=== PATIENT | male | born 1960 | race Caucasian/White ===

== ENCOUNTER 2018-01-06 09:20 | Day surgery (SDC) | payer OTHER ==
[~2018-01-06] VITALS: Ht 177.8 cm; Wt 97.7 kg
[~2018-01-06 09:20] MED LIST: Amoxicillin500 M1 PO; CLAR500 PO; LEVO750 PO; OMEP20ER PO; ONDA4ODT MM; PANT40; Protonix40 MG PO
== END 2018-01-06 10:40 | disposition home or self-care (01) ==
LOC: ORSCSDS 09:20
PROVIDERS: Internal Medicine Gastroenterology
PROC: 0DB68ZX Excision of Stomach, Via Natural or Artificial Opening Endoscopic, Diagnostic (ICD-10-PCS; principal; 2018-01-06 10:45)
PROC: 0DB58ZX Excision of Esophagus, Via Natural or Artificial Opening Endoscopic, Diagnostic (ICD-10-PCS; principal; 2018-01-06 10:45)
DX: R11.0 Nausea (principal); K25.9 Gastric ulcer, unspecified as acute or chronic, without hemorrhage or perforation; K29.70 Gastritis, unspecified, without bleeding; K20.9 Esophagitis, unspecified; K21.9 Gastro-esophageal reflux disease without esophagitis; E78.5 Hyperlipidemia, unspecified; E66.9 Obesity, unspecified; Z68.31 Body mass index [BMI] 31.0-31.9, adult; F17.210 Nicotine dependence, cigarettes, uncomplicated; Z79.899 Other long term (current) drug therapy
CPT/HCPCS: 88305; 88342

== ENCOUNTER 2022-10-25 11:18 | Inpatient (IN) | payer OTHER ==
[~2022-10-25] VITALS: Ht 177.8 cm; Wt 100.5 kg
[2022-10-25] MEDS ORDERED: Aspir 8181 MG PO (11:33)
[2022-10-25 11:45] LABS: BASOPHILS ABSOLUTE AUTO 0.08 K/mm3 (0.00-0.23); BASOPHILS PERCENT AUTO 1 % (0-2); EOSINOPHILS ABSOLUTE AUTO 0.46 K/mm3 (0.00-0.68); EOSINOPHILS PERCENT AUTO 4 % (0-6); Hematocrit 42.6 % (37.0-53.0); Hemoglobin 14.4 g/dL (13.5-17.5); IMMATURE GRAN ABSOLUTE AUTO 0.03 K/mm3 (0.00-0.10); IMMATURE GRAN PERCENT AUTO 0 % (0-1); LYMPHOCYTES ABSOLUTE AUTO 4.31 K/mm3 (0.84-5.20); LYMPHOCYTES PERCENT AUTO 38 % (21-46); MONOCYTES ABSOLUTE AUTO 0.72 K/mm3 (0.16-1.47); MONOCYTES PERCENT AUTO 6 % (4-13); Mean Corpuscular HGB 30.3 pg (26.0-34.0); Mean Corpuscular HGB Conc 33.8 g/dL (31.5-36.5); Mean Corpuscular Volume 90 fL (80-100); Mean Platelet Volume 9.5 fL (9.1-12.4); NEUTROPHILS ABSOLUTE AUTO 5.68 K/mm3 (1.96-9.15); NEUTROPHILS PERCENT AUTO 50 % (41-73); Platelet Count 264 K/mm3 (150-400); RDW Coefficient Variation 13.3 % (11.7-14.2); RDW Standard Deviation 43.8 fL (35.1-46.3); Red Blood Cell Count 4.76 M/mm3 (4.30-5.90); White Blood Cell Count 11.28 K/mm3 (4.00-11.30)
[2022-10-25 12:00] LABS: Albumin, Blood 3.6 g/dL (3.4-5.0); Bilirubin, Total 0.4 mg/dL (0.1-1.0); Bun/Creatinine Ratio 17.2 (12.0-20.0); Calcium, Blood 8.9 mg/dL (8.5-10.1); Creatinine, Blood 0.81 mg/dL (0.60-1.20); Globulin, Blood 3.6 g/dL (2.2-4.0); Magnesium, Blood 2.1 mg/dL (1.6-2.4); Potassium, Blood 4.1 mmol/L (3.5-5.5); Total Protein, Blood 7.2 g/dL (6.4-8.2)
[2022-10-25 18:49] VITALS: BP 141/88
--- NOTE | 2022-10-25 19:05 | NUR ---
PCU ADMIT PT BROUGHT TO UNIT BY SHAWN FROM ER @ APPROX 1630. PT TRANSFERED FROM [facility] TO BED W/ STANDBY ASSIST. PT IS A&O X4. VSS. SPO2 >92% ON RA. SKYLA SINUS RHYTHM HR 40'S-50'S. PT DENIES ANY CP OR SOB AT THIS TIME. PT ORIENTED TO ROOM AND CALL LIGHT. PT RESTING IN BED IN LOWEST POSITION. WILL REPORT OFF TO IN HOUSE COUNSEL RN.
[2022-10-25 19:16] LABS: Anti-Xa UFH, PHA Monitoring <0.10 IU/mL; International Normalized Ratio 1.06; Prothrombin Time Results 11.1 Sec (9.7-11.5)
[2022-10-25 19:20] VITALS: BP 141/90
--- NOTE | 2022-10-25 19:20 | NUR ---
ASSESSMENT/ASSUMED CARE PT AWAKE SITTING UP IN THE BED WATCHING TV AND TALKING ON THE PHONE. DENIES PAIN OR DISCOMFORT. LUNGS CLEAR ON ROOMAIR. RESP EVEN AND NONLABORED. HEART RATE REGULAR, BP STABLE. NO EDEMA. MOVING SELF IN BED. HEPARIN GTT AT 15 UNITS/KG/HR. VSS.
--- NOTE | 2022-10-25 19:23 | NUR ---
PCU ADMIT PT BROUGHT TO PCU-11 BY SHAWN FROM ER @ APPROX 1830. PT A&O X4. PT ABLE TO STAND & AMBULATE FROM [facility] TO U BED INDEPENDENTLY. PT VSS. SPO2 > 92% ON RA. MONITOR SHOWING SB, HR 50s. PT DENYING CP. HEPARIN GTT INIATED PER ORDERS, VERIFIED W/ FUNERAL SERVICE APPRENTICE RN ASSUMING CARE OF PT.
[2022-10-25 23:50] VITALS: BP 151/92
[2022-10-26] VITALS (15 sets, daily range): BP systolic 128–175; BP diastolic 73–126
[2022-10-26 01:25] LABS: BASOPHILS PERCENT AUTO 1 % (0-2); EOSINOPHILS ABSOLUTE AUTO 0.49 K/mm3 (0.00-0.68); EOSINOPHILS PERCENT AUTO 4 % (0-6); Hematocrit 41.5 % (37.0-53.0); IMMATURE GRAN ABSOLUTE AUTO 0.04 K/mm3 (0.00-0.10); IMMATURE GRAN PERCENT AUTO 0 % (0-1); LYMPHOCYTES ABSOLUTE AUTO 5.22 K/mm3 (0.84-5.20); LYMPHOCYTES PERCENT AUTO 43 % (21-46); MONOCYTES ABSOLUTE AUTO 0.75 K/mm3 (0.16-1.47); MONOCYTES PERCENT AUTO 6 % (4-13); Mean Corpuscular HGB 29.9 pg (26.0-34.0); Mean Corpuscular HGB Conc 33.7 g/dL (31.5-36.5); Mean Corpuscular Volume 89 fL (80-100); Mean Platelet Volume 9.4 fL (9.1-12.4); NEUTROPHILS PERCENT AUTO 46 % (41-73); Platelet Count 241 K/mm3 (150-400); RDW Coefficient Variation 13.4 % (11.7-14.2); RDW Standard Deviation 43.8 fL (35.1-46.3); Red Blood Cell Count 4.68 M/mm3 (4.30-5.90)
[2022-10-26 02:06] LABS: Alanine Aminotransfer (ALT/SGP 20 U/L (12-78); Albumin, Blood 3.4 g/dL (3.4-5.0); Alk Phos 62 U/L (50-136); Anion Gap 5 mmol/L (6-16); Aspartate Aminotrans (AST/SGOT 27 U/L (12-37); Bilirubin, Total 0.4 mg/dL (0.1-1.0); Blood Urea Nitrogen 14 mg/dL (8-24); Bun/Creatinine Ratio 17.7 (12.0-20.0); CHOL/HDL RATIO 6.4; CO2, Blood 26 mmol/L (21-32); Calcium, Blood 8.4 mg/dL (8.5-10.1); Chloride, Blood 112 mmol/L (98-108); Cholesterol 186 mg/dL (50-200); Creatinine, Blood 0.79 mg/dL (0.60-1.20); Globulin, Blood 3.4 g/dL (2.2-4.0); Glomerular Filtration Rate 99 (60-); Glucose, Blood 88 mg/dL (70-99); HDL Cholesterol 29 mg/dL (>39); LDL/HDL RATIO 4.2; Low Density Lipoprotein Chol 121 mg/dL (0-110); Potassium, Blood 3.8 mmol/L (3.5-5.5); Sodium, Blood 143 mmol/L (136-145); Total Protein, Blood 6.8 g/dL (6.4-8.2); Triglycerides 182 mg/dL (30-160); Very Low Density Lipoprot Chol 36 mg/dL (6-32)
--- NOTE | 2022-10-26 05:45 | NUR ---
SHIFT SUMMARY PT RESTED QUIELTY DURING THE NIGHT. VSS. PT ON HEPARIN GTT FOR ELEVATED TROPONIN. TROPONIN DOWN TO 1928, REPEAT TROPONIN AT 0700. SINUS SKYLA IN THE 40-50'S DURING THE NIGHT. REPORT TO ON COMING NURSE
--- NOTE | 2022-10-26 07:56 | NUR ---
PT RESTING COMFORTABLY IN BED. STATES NO CHEST PAIN OR PRESSURE, SOB, NUMBNESS. IV HEPRIN RUNNING ORDERED.
--- NOTE | 2022-10-26 08:53 | NUR ---
DR. FORTE SPOKE TO PT. PT AGREED TO ANGIOGRAM THIS AFTERNOON. WILL STILL HAVE THE ECHO. DR. FORTE DISCONTINUED THE HEPARIN AND STARTED PT ON NORMAL SALINE. WILL KEEP NPO UNTIL THE PROCEDURE.
--- NOTE | 2022-10-26 08:54 | NUR ---
heparin gtt stopped when Dr. Monaco was here. Notified Kim in pharmacy.
--- NOTE | 2022-10-26 12:25 | NUR ---
AT 1116 WHILE TAKING VITALS, PT STATED THAT HE HAD A HEADACHE AT 1/10 ON THE PAIN SCALE. HE STATED THAT HE USUALLY DRINKS A POT OF COFFEE A DAY AND MAY BE BECAUSE HE HASN'T HAD ANY COFFEE. HE WILL LET US KNOW IF ANYTHING CHANGES.
--- NOTE | 2022-10-26 13:48 | NUR ---
Pt returned from the union laborer, white immoblizer board in place and TR band on the right wrist. Site is without bleeding, bruising, nor evidence or hematoma. Pt denies any pain/discomfort at all. Cap refill is less than 3 seconds, and pt has sensation in his right hand. Vital signs are stable. He is alert, oriented and conversant. Echocardiogram in progress immediately after pt return to PCU 11. Dr. Kaur is here now to see the patient post angio. He will be discharged today, she says.
--- NOTE | 2022-10-26 15:49 | NUR ---
STARTED DEFLATING TR BAND AT 1443. 4CC REMOVED SO FAR. NO BLEEDING OR BRUISING AT SITE. NO PAIN, TINGLING, NUMBNESS IN FINGERS. CAP REFILL IS LESS THAN 3 SECONDS.
--- NOTE | 2022-10-26 16:44 | NUR ---
Call to Dr. Malin regarding pt's elevated blood pressure since return from the [employer] laborer. New order received for Losartan 50 mg starting today.
--- NOTE | 2022-10-26 17:43 | NUR ---
TR BAND FULLY RECOVERED AT 1609. TR BAND REMOVED 1740 AND TEGEDERM PLACED OVER SITE. NO BRUISING OR BLEEDING FROM SITE. NO PAIN, TINGLING, NUMBNESS REPORTED FROM PT IN RIGHT HAND.
[2022-10-26] MEDS ORDERED: ATOR40TA PO (17:57)
[2022-10-26] MEDS ORDERED: LOSA25 PO (17:58)
--- NOTE | 2022-10-26 18:49 | NUR ---
SHIFT SUMMARY PT HAD ANGIOGRAM TODAY. RETURNED TO ROOM AT 1335. TR BAND WAS RECOVERED AND REMOVED BY 1740. NO BLEEDING OR BRUISING FROM SITE. ARM BOARD IS IN PLACE, RADIAL PULSES PALPABLE. PT STATES NO PAIN, TINGLING, NUMBNESS IN RIGHT HAND. BLOOD PRESSURE WAS ELEVATED DURING RECOVERY. BP REACHED 175/103 AT 1602. PT STATES NO HEADACHE, BLURRED VISION, OR OTHER SYMPTOMS. DR. JORGE WAS NOTIFIED AND PT WAS STARTED ON [place]. PT WAS GIVEN VERBAL AND PAPER DISCHARGE INSTRUCTIONS AND STATED NO QUESTIONS AT THIS TIME.
== END 2022-10-26 19:00 | disposition home or self-care (01) | DRG 287 ==
LOC: ER 11:18 → PCU 11:19
PROVIDERS: Emergency Medicine; ADMIT Internal Medicine
PROC: 4A023N7 Measurement of Cardiac Sampling and Pressure, Left Heart, Percutaneous Approach (ICD-10-PCS; principal; 2022-10-26)
PROC: B2111ZZ Fluoroscopy of Multiple Coronary Arteries using Low Osmolar Contrast (ICD-10-PCS; 2022-10-26)
PROC: B24BZZ3 Ultrasonography of Heart with Aorta, Intravascular (ICD-10-PCS; 2022-10-26)
DX: I25.10 Atherosclerotic heart disease of native coronary artery without angina pectoris (principal); I73.9 Peripheral vascular disease, unspecified; I10 Essential (primary) hypertension; E78.5 Hyperlipidemia, unspecified; R00.1 Bradycardia, unspecified; R94.31 Abnormal electrocardiogram [ECG] [EKG]; I34.0 Nonrheumatic mitral (valve) insufficiency; I07.1 Rheumatic tricuspid insufficiency; J43.9 Emphysema, unspecified; F17.210 Nicotine dependence, cigarettes, uncomplicated; Z71.6 Tobacco abuse counseling; Z90.49 Acquired absence of other specified parts of digestive tract; Z95.5 Presence of coronary angioplasty implant and graft; Z98.890 Other specified postprocedural states; Z79.82 Long term (current) use of aspirin
CPT/HCPCS: 36415; 70496; 70498; 71046; 76937; 80053; 80061; 83735; 84443; 84484; 85025; 85520; 85610; 85730; 93005; 93010; 93306; 93454; 94762; 96374; 99152; 99285-25; A9270; C1769; C1887; C1894; G0378; J1644; J2250; J3010; J7030; J7050; Q9967

== ENCOUNTER 2023-05-28 08:43 | Day surgery (SDC) | payer OTHER ==
[~2023-05-28] VITALS: Ht 175.3 cm; Wt 101.8 kg
[~2023-05-28 08:43] MED LIST changes: +ATOR40TA PO; +Aspir 8181 MG PO; +LOSA25 PO
[2023-05-28] MEDS ORDERED: CLOP75 (08:58)
--- NOTE | 2023-05-28 09:45 | NUR ---
05/28/23 0945 Rupa Valencia PT UPDATED ON DELAY IN START TIME DUE TO PREVIOUS CASE GOING IN LATE. BED IN LOW, LOCKED POSITION, CALL LIGHT IN REACH.
[2023-05-28 13:00] VITALS: BP 131/88
== END 2023-05-28 11:50 | disposition home or self-care (01) ==
LOC: ORSCSDS 08:43
PROVIDERS: Specialist
PROC: 0DB78ZX Excision of Stomach, Pylorus, Via Natural or Artificial Opening Endoscopic, Diagnostic (ICD-10-PCS; principal; 2023-05-28 10:00)
PROC: 0DB58ZX Excision of Esophagus, Via Natural or Artificial Opening Endoscopic, Diagnostic (ICD-10-PCS; principal; 2023-05-28 10:00)
PROC: 0DJD8ZZ Inspection of Lower Intestinal Tract, Via Natural or Artificial Opening Endoscopic (ICD-10-PCS; principal; 2023-05-28 10:00)
DX: K21.9 Gastro-esophageal reflux disease without esophagitis (principal); Z12.11 Encounter for screening for malignant neoplasm of colon; Z86.010 Personal history of colon polyps; K31.A29 Gastric intestinal metaplasia with dysplasia, unspecified; K29.70 Gastritis, unspecified, without bleeding; Z80.0 Family history of malignant neoplasm of digestive organs; K64.8 Other hemorrhoids; K64.4 Residual hemorrhoidal skin tags; K57.30 Diverticulosis of large intestine without perforation or abscess without bleeding; E78.5 Hyperlipidemia, unspecified; Z87.891 Personal history of nicotine dependence
CPT/HCPCS: 43239; G0105; 88305; 88341; 88342; J2704; J7120

== ENCOUNTER 2024-06-15 11:22 | Day surgery (SDC) | payer MEDICARE, OTHER ==
[~2024-06-15] VITALS: Ht 177.8 cm; Wt 100.3 kg
[~2024-06-15 11:22] MED LIST changes: +CLOP75; +Lactated Ringer's 1,000 ML IV ONE; +propofoL 50 ML IV ONE
[2024-06-15] MEDS ORDERED: Lactated Ringer's 1,000 ML IV ONE (12:16)
[2024-06-15 15:26] VITALS: BP 150/87
== END 2024-06-15 13:32 | disposition home or self-care (01) ==
LOC: ORSCSDS 11:22
PROVIDERS: Specialist
PROC: 0DB68ZX Excision of Stomach, Via Natural or Artificial Opening Endoscopic, Diagnostic (ICD-10-PCS; principal; 2024-06-15 12:45)
DX: K31.A29 Gastric intestinal metaplasia with dysplasia, unspecified (principal); K44.9 Diaphragmatic hernia without obstruction or gangrene; E78.5 Hyperlipidemia, unspecified; I10 Essential (primary) hypertension; F17.210 Nicotine dependence, cigarettes, uncomplicated; K31.A21 Gastric intestinal metaplasia with low grade dysplasia
CPT/HCPCS: 88305; 88341; 88342; J2704; J7120